=== PATIENT | female | born 1985 | race Asian ===

== ENCOUNTER 2024-02-25 10:57 | Day surgery (SDC) | payer OTHER ==
[~2024-02-25] VITALS: Ht 147.3 cm; Wt 66.2 kg
[~2024-02-25 10:57] MED LIST: HYDROmorphone 1 MG/1 ML SYRINGE [PACU/SDC ONLY] IV PRN; LR 1,000 ML IV SCH; MULTIPLE VITAMI1 CAP PO; Meperidine 50 MG/ML 1 ML VIAL IV PRN; Ondansetron 4 MG/2 ML VIAL IV PRN; ZYRTEC 10MG10 MG PO; droPERidol 2.5 MG/ML 2 ML VIAL IV PRN; fentaNYL 50 MCG/ML 1 ML SYRINGE/VIAL [PACU/SDC ONLY] IV PRN; hydrALAZINE 20 MG/ML 1 ML VIAL IV PRN
[2024-02-25] MEDS ORDERED: Rocuronium 50 MG/5 ML Multi-Dose VIAL ONE (11:52)
[2024-02-25] MEDS ORDERED: fentaNYL 50 MCG/ML 2 ML VIAL ONE ×2 (11:52→14:03)
[2024-02-25 11:53] VITALS: BP 112/68; PULSE 71; TEMP 97.8
[2024-02-25] MEDS ORDERED: dexAMETHasone 10 MG/ML VIAL ONE (11:54)
[2024-02-25] MEDS ORDERED: Ondansetron 4 MG/2 ML VIAL ONE (11:54)
[2024-02-25] MEDS ORDERED: oxyCODONE Oral Soln 5 MG/5 ML UD PO PRN (15:00)
[2024-02-25] MEDS ORDERED: LR 1,000 ML IV SCH (15:00)
[2024-02-25] MEDS ORDERED: Ondansetron 4 MG/2 ML VIAL IV PRN (15:00)
[2024-02-25 15:35] VITALS: BP 110/69; PULSE 80; TEMP 97.4
[2024-02-25 15:38] VITALS: TEMP 97.4
[2024-02-25 15:50] VITALS: BP 107/66; PULSE 68
[2024-02-25 16:05] VITALS: BP 111/71; PULSE 90
[2024-02-25 16:20] VITALS: BP 115/71; PULSE 95
--- NOTE | 2024-02-25 17:20 | NUR ---
1535: PT TO BAY 1 PER CART FROM PACU. REPORT RECEIVED. PT DROWSEY BUT OPENS EYES WHEN NAME CALLED. DENIES PAIN OR NAUSEA. VSS. BREATHING EVEN AND UNLABORED. NO FURTHER NEEDS NOTED. RESTING IN BED. CALL LIGHT IN REACH. 1550: PT ALERT AND ORIENTED. VSS. BREATHING EVEN AND UNLABORED. REQUESTING COFFEE. TOLERATING ICE CHIPS. DENIES PAIN AND NAUSEA. RESTING IN BED. CALL LIGHT IN REACH. NO FURTHER NEEDS NOTED. 1555: DR. DEAN IN ROOM SPEAKING WITH PT. 1620: PT ALERT AND ORIENTED. VSS. BREATHING EVEN AND UNLABROED. TOLERATING COFFEE. DENIES PAIN OR NAUSEA. NO FURTHER NEEDS NOTED. RESTING IN BED. CALL LIGHT IN REACH. 1626: DISCHARGE EDUCATION COMPLETED AT THIS TIME. PT STATED UNDERSTANDING OF HOME AND FOLLOW-UP CARE. DC PAPER WORK GIVEN TO PT. IV DC'D AT THIS TIME. PT DENIES ANY ASSISTANCE WITH DRESSING. AWAITING PT RIDE. 1700: PT OFF UNIT PER WHEEL CHAIR. PT DC'D TO HOME WITH , HUMA, PER PERSONAL VEHICLE.
== END 2024-02-25 17:00 | disposition home or self-care (01) ==
LOC: SDCO 10:57
DX: K22.5 Diverticulum of esophagus, acquired (principal)
CPT/HCPCS: J1100; J2405; J2704; J3010; J7120